=== PATIENT | female | born 1980 | race Hispanic/Latino ===

== ENCOUNTER 2018-10-29 16:16 | Emergency (ER) | payer BC, OTHER ==
[2018-10-29 16:27] VITALS: BMI 32.8
[2018-10-29 16:28] VITALS: O2SAT 99
[2018-10-29] MEDS ORDERED: Iohexol 240 (50 ml) PO ONE (17:10)
[2018-10-29] MEDS ORDERED: Sodium Chloride 0.9% 1,000 ML IV STA (17:12)
[2018-10-29 17:24] LABS: BASO # 0.1 K/uL (0.0-0.2); BASO % 0.5 % (0.0-2.0); EOS % 0.1 % (0.0-4.0); LYMPH # 0.9 K/uL (1.0-4.3); LYMPH % 8.3 % (20.0-40.0); MEAN CELL VOLUME 92.9 fl (81.0-99.0); MEAN CORPUSCULAR HEMOGLOBIN 31.1 pg (27.0-31.0); MEAN CORPUSCULAR HGB CONC 33.5 g/dL (33.0-37.0); MEAN PLATELET VOLUME 8.9 fl (7.2-11.7); MONO # 0.3 K/uL (0.0-0.8); NEUT # 9.4 K/uL (1.8-7.0); NEUT % 88.1 % (50.0-75.0); PLATELET COUNT 254 K/uL (130-400); RBC 4.18 Mil/uL (3.80-5.20); RED CELL DISTRIBUTION WIDTH 13.2 % (11.5-14.5); WHITE BLOOD COUNT 10.6 K/uL (4.8-10.8)
[2018-10-29 17:43] LABS: ALB/GLOB RATIO 1.4 (1.0-2.1); ALBUMIN 4.4 g/dL (3.5-5.0); ALT/SGPT 32 U/L (9-52); AST/SGOT 28 U/L (14-36); BLOOD UREA NITROGEN 12 mg/dl (7-17); CALCIUM 9.4 mg/dL (8.4-10.2); GFR NON-AFRICAN AMERICAN > 60; LIPASE 17 U/L (23-300)
[2018-10-29 18:05] LABS: SQUAMOUS EPITHIAL 3 /hpf (0-5); URINE BILIRUBIN NEGATIVE (NEGATIVE); URINE BLOOD SMALL (NEGATIVE); URINE CLARITY SLIGHTY-CLOUDY (Clear); URINE COLOR YELLOW (YELLOW); URINE GLUCOSE (UA) 150 mg/dL (NEGATIVE); URINE LEUKOCYTE ESTERASE NEG Leu/uL (Negative); URINE PROTEIN NEGATIVE (NEGATIVE); URINE UROBILINOGEN 0.2-1.0 mg/dL (0.2-1.0)
--- NOTE | 2018-10-29 18:12 | ED PDOC ---
HPI: Abdomen Time Seen by Provider: 10/29/18 16:49 Chief Complaint (Nursing): Abdominal Pain Chief Complaint (Provider): abdominal pain History Per: Patient History/Exam Limitations: no limitations Onset/Duration Of Symptoms: Hrs Current Symptoms Are (Timing): Still Present Quality Of Discomfort: "Pain" Associated Symptoms: Nausea, Vomiting (x 2 episodes), Loss Of Appetite. denies: Fever, Chills Alleviating Factors: None Additional Complaint(s): Pt. is a healthy 37 yr. old Female who reports abdominal pain that started today around 11am. Pt. reports pain initially "around the belly button" and is now mostly on right side. Pt. attributed the pain to "gas cramps" and took a gas pill which immediately vomited. Pt. reports decreased appetite secondary to pain. Pt. denies fevers, chills. Last Menstral Period: on menses Past Medical History Reviewed: Nursing Documentation, Vital Signs Vital Signs: Last Vital Signs Temp 98.7 F 10/29/18 16:27 Pulse 88 10/29/18 16:27 Resp 18 10/29/18 16:27 BP 122/81 10/29/18 16:27 Pulse Ox 99 10/29/18 16:27 - Medical History PMH: No Chronic Diseases - Family History Family History: States: Unknown Family Hx - Allergies Allergies/Adverse Reactions: Allergies Allergy/AdvReac Type Severity Reaction Status Date / Time No Known Allergies Allergy Verified 10/29/18 16:26 Review of Systems Constitutional: Negative for: Fever, Chills, Sweats Cardiovascular: Negative for: Chest Pain Respiratory: Negative for: Cough, Shortness of Breath Gastrointestinal: Positive for: Nausea, Vomiting, Abdominal Pain Genitourinary Female: Negative for: Dysuria, Frequency, Vaginal Discharge Physical Exam - Reviewed Vital Signs Reviewed: Yes - Physical Exam Appears: Positive for: Well, Non-toxic Head Exam: Positive for: ATRAUMATIC Skin: Positive for: Normal Color, Warm, Dry ENT: Positive for: Normal ENT Inspection Neck: Positive for: Normal Cardiovascular/Chest: Positive for: Regular Rate, Rhythm Respiratory: Positive for: Normal Breath Sounds Gastrointestinal/Abdominal: Positive for: Soft, Tenderness (Mild-moderate right lower abdominal tenderness.). Negative for: Mass, Guarding, Rebound - Laboratory Results Result Diagrams: 10/29/18 17:15 10/29/18 17:15 Lab Results: Total Bilirubin 0.5 mg/dl (0.2-1.3) 10/29/18 17:15 AST 28 U/L (14-36) 10/29/18 17:15 ALT 32 U/L (9-52) 10/29/18 17:15 Alkaline Phosphatase 73 U/L (38-126) 10/29/18 17:15 Total Protein 7.6 G/DL (6.3-8.2) 10/29/18 17:15 Albumin 4.4 g/dL (3.5-5.0) 10/29/18 17:15 Globulin 3.1 gm/dL (2.2-3.9) 10/29/18 17:15 Albumin/Globulin Ratio 1.4 (1.0-2.1) 10/29/18 17:15 Lipase 17 U/L (23-300) L 10/29/18 17:15 Urine Color Yellow (YELLOW) 10/29/18 17:43 Urine Clarity Slighty-cloudy (Clear) 10/29/18 17:43 Urine pH 7.0 (5.0-8.0) 10/29/18 17:43 Ur Specific [place] 1.024 (1.003-1.030) 10/29/18 17:43 Urine Protein Negative mg/dL (NEGATIVE) 10/29/18 17:43 Urine Glucose (UA) 150 mg/dL (NEGATIVE) 10/29/18 17:43 Urine Ketones 20 mg/dL (NEGATIVE) 10/29/18 17:43 Urine Blood Small (NEGATIVE) 10/29/18 17:43 Urine Nitrate Negative (NEGATIVE) 10/29/18 17:43 Urine Bilirubin Negative (NEGATIVE) 10/29/18 17:43 Urine Urobilinogen 0.2-1.0 mg/dL (0.2-1.0) 10/29/18 17:43 Ur Leukocyte Esterase Neg Susie/uL (Negative) 10/29/18 17:43 Urine RBC (Auto) 5 /hpf (0-3) H 10/29/18 17:43 Urine Microscopic WBC 1 /hpf (0-5) 10/29/18 17:43 Ur Squamous Epith Cells 3 /hpf (0-5) 10/29/18 17:43 - ECG O2 Sat by Pulse Oximetry: 99 Medical Decision Making Medical Decision Making: IV access established cbc, cmp, lipase ct abd./pelvis ordered. IV Zofran given. NPO Pt. resting comfortably. Repeat abdominal exam, mild RLQ tenderness, awaiting CT. Pt. endorsed to [facility] Av[facility], pending CT and reassessment Disposition - Clinical Impression Clinical Impression: Abdominal pain - Patient ED Disposition Is Patient to be Admitted: Transfer of Care ([facility] Avila, pending CT and reassessment.) - Disposition Disposition Time: 20:08 Condition: STABLE Forms: [employer] (Swedish)
[2018-10-29] MEDS ORDERED: Sodium Chloride 0.9% 50 ML IV ONE (18:33)
[2018-10-29] MEDS ORDERED: Iohexol 300 100 ML IJ ONE (18:33)
[2018-10-29 18:47] LABS: PLATELET ESTIMATE NORMAL (NORMAL)
[2018-10-29 18:48] LABS: BANDS 2 % (0-2); LYMPHOCYTE 10 % (20-50); MONOCYTE 4 % (0-10); NEUTROPHIL 84 % (42-75); TOTAL CELLS COUNTED 100
--- NOTE | 2018-10-29 20:48 | ED PDOC ---
- Laboratory Results Result Diagrams: 10/29/18 17:15 10/29/18 17:15 Lab Results: Total Bilirubin 0.5 mg/dl (0.2-1.3) 10/29/18 17:15 AST 28 U/L (14-36) 10/29/18 17:15 ALT 32 U/L (9-52) 10/29/18 17:15 Alkaline Phosphatase 73 U/L (38-126) 10/29/18 17:15 Total Protein 7.6 G/DL (6.3-8.2) 10/29/18 17:15 Albumin 4.4 g/dL (3.5-5.0) 10/29/18 17:15 Globulin 3.1 gm/dL (2.2-3.9) 10/29/18 17:15 Albumin/Globulin Ratio 1.4 (1.0-2.1) 10/29/18 17:15 Lipase 17 U/L (23-300) L 10/29/18 17:15 Urine Color Yellow (YELLOW) 10/29/18 17:43 Urine Clarity Slighty-cloudy (Clear) 10/29/18 17:43 Urine pH 7.0 (5.0-8.0) 10/29/18 17:43 Ur Specific [place] 1.024 (1.003-1.030) 10/29/18 17:43 Urine Protein Negative mg/dL (NEGATIVE) 10/29/18 17:43 Urine Glucose (UA) 150 mg/dL (NEGATIVE) 10/29/18 17:43 Urine Ketones 20 mg/dL (NEGATIVE) 10/29/18 17:43 Urine Blood Small (NEGATIVE) 10/29/18 17:43 Urine Nitrate Negative (NEGATIVE) 10/29/18 17:43 Urine Bilirubin Negative (NEGATIVE) 10/29/18 17:43 Urine Urobilinogen 0.2-1.0 mg/dL (0.2-1.0) 10/29/18 17:43 Ur Leukocyte Esterase Neg Susie/uL (Negative) 10/29/18 17:43 Urine RBC (Auto) 5 /hpf (0-3) H 10/29/18 17:43 Urine Microscopic WBC 1 /hpf (0-5) 10/29/18 17:43 Ur Squamous Epith Cells 3 /hpf (0-5) 10/29/18 17:43 - ECG O2 Sat by Pulse Oximetry: 99 Medical Decision Making Medical Decision Makin case endorsed to me by [facility], pending CT results, r/o appy and dispo 2044 EXAM: CT Abdomen and Pelvis with IV contrast CLINICAL HISTORY: Rlq abd pain TECHNIQUE: Axial computed tomography images of the abdomen and pelvis with intravenous contrast. 647.44 mGy-cm CONTRAST: With; [id number] 95ML COMPARISON: None provided. FINDINGS: LUNG BASES: The lung bases appear clear. No pleural effusions are seen. LIVER: Unremarkable. GALLBLADDER AND BILE DUCTS: There is sludge and debris within a distended gallbladder. No pericholecystic fluid. PANCREAS: Unremarkable. SPLEEN: Unremarkable. ADRENAL GLANDS: Unremarkable. KIDNEYS, URETERS, AND BLADDER: The kidneys appear within normal limits. There is no hydronephrosis or hydro ureter. No urinary calculi are seen. STOMACH AND BOWEL: Unremarkable appearance of the stomach and bowel. No evidence of bowel obstruction. No evidence suggesting enteritis or colitis. APPENDIX: No evidence of acute appendicitis on CT examination. PERITONEUM: No free fluid. No free air. LYMPH NODES: No lymphadenopathy is evident. REPRODUCTIVE: Uterus is heterogeneous in attenuation. VASCULATURE: No evidence of abdominal aortic aneurysm. BONES: No aggressive appearing osseous lesion. No acute osseous pathology evident. IMPRESSION: Sludge and debris within a distended gallbladder. Heterogeneous appearance to the uterus. No suspicious mass or lymphadenopathy. Electronically signed on Oct 29, 2018 8:00:08 PM EDT by: Wu Sepulveda M.D., Certified by [facility], Diagnostic Radiology 2100 pt seen by me, pt states pain comes and goes, +RUQ tenderness +[place] 2107 spoke to surgical processor, alvarado Rodriguez - recommends US to ensure it is not acute cholecysitis 0030 Ultrasound of the abdomen, limited. Indication: Right upper quadrant pain. Technique: Real-time ultrasound images are obtained. Findings: Liver is normal in size measuring 14.9 cm. Diffuse thickening of the gallbladder measuring 6.8 mm. Stones and sludge in the lumen of the gallbladder. Nondilated common bile duct measuring 3.6 mm. Unremarkable pancreas. Unremarkable IVC. Unremarkable aorta. Unremarkable right kidney measuring 9x4.2x4.6 cm. Impression: Cholelithiasis. Mild changes of acute cholecystitis. 0048 re eval pt continues to be pain free, abdomen is currently soft and non tender, will consult surgery spoke to Dr. Jimenez, surgical processor, states that if pt is symptom free she can go home and f/u outpt with Dr. Rey pt has no elevated WBC, LFTs wnl, pain free, pt is stable to go home Discussed results, diagnosis, treatment, strict return precautions and f/u with pt who is understanding, in agreement and stable for dc Disposition Counseled Patient/Family Regarding: Studies Performed, Diagnosis, Need For Follo wup, Rx Given - Clinical Impression Clinical Impression: Cholelithiasis - POA Present On Arrival: None - Disposition Referrals: Zackary Rey MD [Staff Provider] - Disposition: Routine/Home Disposition Time: 00:55 Condition: STABLE Additional Instructions: Please follow up with surgery ESTEBAN. Return to ED for new or worsening symptoms, fever >100.4, severe pain, nausea or vomiting. The emergency medical care you received today was directed at your acute symptoms. If you were prescribed any medication, please fill it and take as directed. It may take several days for your symptoms to resolve. Return to the Emergency Department if your symptoms worsen, do not improve, or if you have any other problems. Please contact your doctor in 2 days for re-evaluation and follow up / or call one of the physicians/clinics you have been referred to that are listed on the Patient Visit Information form that is included in your discharge packet. Bring any paperwork you were given at discharge with you along with any medications you are taking to your follow up visit. Our treatment cannot replace ongoing medical care by a primary care provider (PCP) outside of the emergency department. Prescriptions: Ondansetron ODT [Zofran ODT] 4 mg PO TID PRN #12 odt PRN Reason: Nausea/Vomiting Instructions: Gallstones (DC) Forms: [employer] (Paraguayan) Print Language: FAROESE
[2018-10-30 01:27] VITALS: BP 138/80; PULSE 70; RESP 18; TEMP 98.4
--- NOTE | 2018-10-30 10:38 | CT ---
Date of service: 10/29/2018 PROCEDURE: CT Abdomen and Pelvis with contrast HISTORY: RLQ abdominal pain COMPARISON: Abdomen and pelvis CT with contrast 01/22/2013. TECHNIQUE: Following oral and intravenous contrast administration, a CT examination of the abdomen and pelvis was performed from the domes of the diaphragms to the symphysis pubis with reformatted datasets provided not only axial but also sagittal and coronal series. Contrast dose: Omnipaque 300, 95 cc Radiation dose: Total exam DLP = 647.44 mGy-cm. This CT exam was performed using one or more of the following dose reduction techniques: Automated exposure control, adjustment of the mA and/or kV according to patient size, and/or use of iterative reconstruction technique. FINDINGS: LOWER THORAX: Small hiatal hernia encountered. LIVER: Unremarkable. No gross lesion or ductal dilatation. GALLBLADDER AND BILE DUCTS: Gallbladder is again seen distended with heterogeneous but predominantly low density material suspicious for gross cholelithiasis. Limited radiodense cholelithiasis is also identified. No definite pericholecystic fluid collection or reaction associated. The wall appears upper limits normal thickness. Common bile duct appears normal caliber as well. PANCREAS: Unremarkable. No gross lesion or ductal dilatation. SPLEEN: Unremarkable. ADRENALS: Unremarkable. No mass. KIDNEYS AND URETERS: Unremarkable. No hydronephrosis. No solid mass. VASCULATURE: Unremarkable. No aortic aneurysm. No aortic atherosclerotic calcification or mural plaque present. BOWEL: Limited sigmoid diverticular changes without diverticulitis. No bowel obstruction. No definite suspicious mural thickening. APPENDIX: Normal appendix. PERITONEUM: Tiny umbilical hernia contains only mesenteric fat. No mesenteric reaction throughout the abdomen or pelvis, ascites or free intra peritoneal gas collection apparent. LYMPH NODES: Unremarkable. No enlarged lymph nodes. BLADDER: Unremarkable. REPRODUCTIVE: Unremarkable. BONES: No acute fracture. OTHER FINDINGS: None. IMPRESSION: Stable distended gallbladder likely filled with cholelithiasis, sludge and debris. Follow-up ultrasonography can be performed. Consider potential nuclear pattern biliary scan for added characterization although no overt patterns are identified that would suggest diverticulitis by standard CT criteria. No definite biliary tree dilatation. Clinically correlate further. Small hiatal and umbilical hernia is reiterated. Concordant preliminary report from [facility], 10/29/2018, 8 p.m..
--- NOTE | 2018-10-30 12:55 | US ---
Date of service: 10/29/2018 HISTORY: RUQ tenderness COMPARISON: None. TECHNIQUE: Sonographic evaluation of the right upper quadrant of the abdomen. FINDINGS: LIVER: Measures 15.0 cm in length. Liver exhibits smooth contour and normal echogenicity.. No mass. No intrahepatic bile duct dilatation. Hepatic veins poorly delineated.. Portal vein is patent. GALLBLADDER: Multiple intraluminal gallbladder calculi. Gallbladder wall thickening and/or edema and GALLITO sign. No evidence of sonographic Mei sign. COMMON BILE DUCT: Measures 3.6 mm. No stones. No dilatation. PANCREAS: Unremarkable as visualized.. Note that the distal pancreatic tail is poorly delineated due to body habitus and bowel gas. No mass. No ductal dilatation.. With the no clean 1 the at the normal 1 FDG unclean is asking RIGHT KIDNEY: Measures 9.0 x 4.2 x 4.6 cm in length. Normal echogenicity. No calculus, mass, or hydronephrosis. AORTA: No aneurysmal dilatation. IVC: Unremarkable. OTHER FINDINGS: None . IMPRESSION: Cholelithiasis with GALLITO sign.. No evidence of sonographic Mei sign.
== END 2018-10-30 01:29 | disposition home or self-care (01) ==
LOC: H.ER 16:16
DX: K80.00 Calculus of gallbladder with acute cholecystitis without obstruction (principal)
CPT/HCPCS: 74177; 76705; 80053; 81003; 81025; 83690; 85025; 96361; 96374; 99284; J2405; J7030; Q9966; Q9967